=== PATIENT | male | born 1975 | race Caucasian/White ===

== ENCOUNTER 2017-04-07 23:47 | Emergency (ER) | payer SELFPAY ==
[~2017-04-07] VITALS: Ht 182.9 cm; Wt 78.0 kg
[2017-04-08 00:29] VITALS: TEMP 36.7; O2SAT 97; Ht 182.9 cm; Wt 78.0 kg
[2017-04-08 00:34] LABS: BLOOD UREA NITROGEN 7 mg/dl (7-18); BUN/CREATININE RATIO 9.9 (10-20); CALCIUM 8.5 mg/dl (8.5-10.1); CARBON DIOXIDE 28 mmol/L (21-32); CHLORIDE 112 mmol/L (98-107); CREATININE 0.68 mg/dl (0.60-1.40); GLUCOSE 109 mg/dl (70-99); POTASSIUM 3.6 mmol/L (3.5-5.1); SODIUM 147 mmol/L (136-145)
--- NOTE | 2017-04-08 05:19 | EMERGENCY ROOM VISIT NOTE ---
History First contact with patient: 23:45 Chief Complaint: ALCOHOL OVERDOSE Stated Complaint: ALCOHOL OVERDOSE Nursing Triage Summary: Patient arrives to ED via BLS transport after being found drunk and bothering customers in the women's bathroom at the [facility] on [facility] [place]. Patient denies drug use, has not been omiting History of Present Illness The patient is a 41 year old male who presents to the Emergency Room with complaints of alcohol overdose. Patient is found in the [facility] bathroom bothering customers. Police were summoned and they summoned EMS. Patient is a known alcoholic. Patient has no complaints. No one is willing to care for him tonight. Patient denies any drug use. He states he drank a lot of alcohol. Patient denies chest pain, dyspnea, abdominal pain or any other medical complaints. Review of Systems Unable to obtain secondary to altered mental status from alcohol overdose Past Medical/Surgical History Unable to obtain secondary to altered mental status from alcohol overdose Social History Smoking Status: Current Every Day Smoker Alcohol Use: heavy Marital Status: single Occupation Status: employed Current/Historical Medications Unable to Obtain Active Prescriptions or Reported Meds Allergies Coded Allergies: No Known Allergies (Unverified Allergy, NONE, 08/30/09) Physical Exam Vital Signs Date Time Temp Pulse Resp B/P (MAP) Pulse Ox O2 Delivery O2 Flow Rate FiO2 04/08/17 04:30 58 20 102/57 97 04/08/17 03:06 67 04/08/17 02:28 92/57 04/08/17 02:00 64 14 95 04/08/17 01:31 91/47 04/08/17 01:30 68 17 97/42 94 Room Air 04/08/17 01:30 72 18 96 04/08/17 01:01 107/51 04/08/17 01:00 68 18 107/51 94 Room Air 04/08/17 01:00 72 14 94 04/08/17 00:29 36.7 72 17 126/82 94 Room Air 04/08/17 00:29 97 Room Air 04/07/17 23:56 61 Physical Exam PHYSICAL EXAM: VITALS: Vitals are noted on the nurse's note and reviewed by myself. Vital signs stable. GENERAL: White male with EtOH odor, in no acute distress, nondiaphoretic, well- developed well-nourished. The patient is visibly intoxicated. SKIN: The skin was without obvious lacerations, abrasions, or rashes. There is no tenting of the skin. Capillary reflex less than 2 seconds. HEENT: Normocephalic, atraumatic. PERRLA. EOMI. Conjunctiva with mild injection without icterus. Tympanic membranes without erythema or effusion bilaterally no hemotympanum. External auditory canals are clear. Nares patent bilaterally. No epistaxis. Oropharynx without erythema or exudate. Uvula midline. Oral mucosal moist. No lymphadenopathy. Neck is supple without cervical spine tenderness. HEART: Regular rate and rhythm without murmurs gallops or rubs. Peripheral pulses 2+. LUNGS: Clear to auscultation bilaterally without wheezes, rales or rhonchi. ABDOMEN: Positive bowel sounds x 4. Normal tympanic percussion. Soft, nontender, without masses or organomegaly. MUSCULOSKELETAL: Gross motor function of the upper and lower extremities intact. The patient has a staggering gait. NEUROLOGIC: The patient is visibly intoxicated. Once they were more sober they were alert and oriented to person place and time. Medical Decision & Procedures Laboratory Results 04/07/17 23:36 Test 04/07/17 23:36 Anion Gap 7.0 mmol/L (3-11) Estimated GFR () 136.5 Estimated GFR (Non- 117.8 BUN/Creatinine Ratio 9.9 (10-20) Calcium Level 8.5 mg/dl (8.5-10.1) Ethyl Alcohol mg/dL 407.0 mg/dl (0-3) ED Course Prior records/ancillary studies reviewed. Triage Nursing notes reviewed. Additional history obtained from EMS. The patient's history was concerning for altered mental status and a possible alcohol overdose. Differential diagnosis: Etiologies such as alcohol intoxication, toxicologic, infection, hypoglycemia, electrolyte abnormalities, cardiac sources, intracerebral event, neurologic, as well as others were entertained. Physical examination: As above. The patient is clinically intoxicated. no trauma noted. ER treatment provided: Monitoring Aspiration precautions The patient was frequently reassessed. Diagnostic interpretation by me: Cardiac monitoring did not reveal any evidence of dysrhythmia. The labs no worrisome electrolyte abnormality. The patient's blood alcohol level was 400 mg/dL. The patient's history was reviewed once they were more coherent and their intoxication cleared. The patient states they have been in good health recently and had no medical complaints. The patient admitted to consuming alcohol. No additional concerning findings were noted. The patient complained of no symptoms to suggest assault. This appears to be consistent with an overdose of alcohol. Patient states he has no other medical complaints would like to leave. By the evaluation outlined above emergent etiologies such as trauma, infection, hypoglycemia, electrolyte abnormalities, cardiac sources, intracerebral event, neurologic,as well as others were deemed relatively unlikely. The patient was informed about the findings as listed above. The patient was counseled on the dangers of excessive alcohol use. I gave my usual and customary discussion regarding this issue. All questions were answered and the patient was pleased with the treatment. Return instructions were outlined and the patient was discharged in stable condition once their mental status improved and a safe destination was confirmed. Outpatient prescription management: None Referral: The patient was referred back to their primary care physician for follow-up in 2 to 3 days for a recheck of their current condition. Medical Decision As above Impression Primary Impression: Alcohol overdose Additional Impression: Alcohol abuse Departure Information Dispostion Home / Self-Care Condition GOOD Prescriptions Unable to Obtain Active Prescriptions or Reported Meds Referrals No Doctor, Assigned (PCP) Patient Instructions My [facility] Additional Instructions Keep well-hydrated. Tylenol every 6 hours as needed for pain (Maximum 3000 mg Tylenol in 24 hr period). Follow up with family doctor as needed. No driving for the next 24 hours. Recommend no alcohol for the next 48 hours and avoid binge drinking in the future. Return to ER sooner for chest pain, abdominal pain, worsening signs or symptoms or as needed. Problem Qualifiers Primary Impression: Alcohol overdose Encounter type: initial encounter Injury intent: accidental or unintentional Qualified Codes: T51.91XA - Toxic effect of unspecified alcohol , accidental (unintentional), initial encounter
[2017-04-08 05:37] VITALS: BP 142/76; PULSE 78; O2SAT 99
== END 2017-04-08 05:38 | disposition home or self-care (01) ==
LOC: EDUNIT# 23:47 → C.EDC 23:51 → C.EDB 04-08 05:38
DX: T51.91XA Toxic effect of unspecified alcohol, accidental (unintentional), initial encounter (principal); F10.129 Alcohol abuse with intoxication, unspecified; Y90.8 Blood alcohol level of 240 mg/100 ml or more; F17.200 Nicotine dependence, unspecified, uncomplicated

== ENCOUNTER 2017-08-02 12:08 | Emergency (ER) | payer SELFPAY ==
[~2017-08-02] VITALS: Ht 180.3 cm; Wt 69.5 kg
[2017-08-02 12:14] VITALS: TEMP 36.9; Ht 180.3 cm; Wt 69.5 kg
--- NOTE | 2017-08-02 12:47 | EMERGENCY ROOM VISIT NOTE ---
History Report prepared by Saima: Barbara Campos Under the Supervision of: Dr. Jt Qureshi M.D. First contact with patient: 12:26 Chief Complaint: ALCOHOL OVERDOSE Stated Complaint: ALCOHOL History of Present Illness The patient is a 41 year old male who presents to the Emergency Room with complaints of an alcohol overdose occurring shortly prior to arrival. He was stumbling downtown when noted by police and EMS contacted. No friends were around. Patient denies any pain other than chronic back discomfort. No cp, headache, neck pain, fall, injury, nausea, vomiting, nor other symptoms. Admits he drinks too much. Patient claims only 1 beer today, but admits drinking all yesterday. Source of History: patient Onset: shortly prior to arrival Position: other (global) Quality: other (alcohol overdose ) Associated Symptoms: + back pain, No headache, No chest pain Review of Systems See HPI for pertinent positives & negatives. A total of 10 systems reviewed and were otherwise negative. Past Medical & Surgical Unable to obtain medical history sheet secondary to intoxication. Family History Unable to obtain medical history sheet secondary to intoxication. Social History Smoking Status: Current Every Day Smoker Alcohol Use: heavy Marital Status: single Occupation Status: employed Current/Historical Medications No Active Prescriptions or Reported Meds Allergies Coded Allergies: No Known Allergies (Unverified , NONE, 08/02/17) Physical Exam Vital Signs Date Time Temp Pulse Resp B/P (MAP) Pulse Ox O2 Delivery O2 Flow Rate FiO2 08/02/17 13:21 90 16 138/107 98 08/02/17 12:19 93 08/02/17 12:14 36.9 86 16 145/94 96 Room Air Physical Exam GENERAL: Patient is moderately intoxicated. Smells of alcohol. Well appearing and in no acute distress. HEAD: No evidence of Trauma. AT/NC EYES: Injected conjunctiva. Normal EOM. Pupils equal/reactive. ENT: Mucous membranes moist, no nasal congestion, . NECK: No step-offs, no adenopathy, no meningismus, trachea is midline. LUNGS: No dyspnea. Clear to auscultation and equal bilaterally. No wheeze, no rhonchi. HEART: Regular rate and rhythm. No murmurs, rubs, gallops appreciated. ABDOMEN: Soft, nontender, bowel sounds positive, no masses appreciated, no peritonitis. BACK: No midline tenderness, no CVA tenderness EXTREMITIES: Normal motion all extremities, no cyanosis, no edema. NEUROLOGIC: Intoxicated. Alert, oriented with slurred speech. No acute motor or sensory deficits, no focal weakness, cranial nerves grossly intact. SKIN: No rash, no jaundice, no diaphoresis. Medical Decision & Procedures ED Course 1225: The patient was evaluated in room B3B. A complete history and physical exam was performed. 1240: We will be holding off on labs until the patient knows if he has a sober friend. 1255: The patient has sober friends here. We discussed his alcohol problem which they all agree he has. 1300: Reevaluated the patient. Discussed results and discharge instructions: He verbalized understanding and agreement. The patient is ready for discharge. Medical Decision Differential: Alcohol Intoxication, Drug Intoxication, Electrolyte Abnormality, Trauma, Intracranial Event, Toxicological, Excited Delirium, Serotonin Syndrome , amongst other pathologies entertained. 41 yr old intoxicated male brought in by EMS after police found him stumbling downtown. Patient with no evidence nor history for trauma. Patient notes chronic back pain unchanged and no falls. Protecting airway and breathing comfortably throughout ED stay. He is clearly intoxicated but prior to labs being sent his friend arrived and I cancelled labs. Monitored and discharged when awake, alert, oriented and denies any complaints. Friend takes responsibility for patient. Medication Reconcilliation Current Medication List: was personally reviewed by me Blood Pressure Screening Patient's blood pressure: Elevated blood pressure Blood pressure disposition: Elevated BP felt to be situational Impression Primary Impression: Alcohol overdose Additional Impressions: Alcohol abuse Alcohol use with intoxication Scribe Attestation The scribe's documentation has been prepared under my direction and personally reviewed by me in its entirety. I confirm that the note above accurately reflects all work, treatment, procedures, and medical decision making performed by me. Departure Information Dispostion Home / Self-Care Prescriptions No Active Prescriptions or Reported Meds Referrals No Doctor, Assigned (PCP) Forms HOME CARE DOCUMENTATION FORM, IMPORTANT VISIT INFORMATION Patient Instructions My [facility] Additional Instructions You were evaluated in emergency department for intoxication. This is a sign of Alcohol Abuse and should not be taken lightly. You had a blood alcohol level that was significantly elevated. You have been here several times for alcohol related issues. This is a sign of alcoholism. Over the next 24 hours keep well hydrated and eat light meals. Don't drink any more alcohol. This is important. Please discuss this visit with your Primary Care Provider, [facility] and/or your loved ones. If the Police were involved you will likely be cited for public intoxication. Please contact [employer] for further information. Call 911 or return to Emergency Department if you develop: Passing out, difficulty breathing, many episodes of vomiting, blood in vomit or stool, abdominal pain, fevers, or other severe symptoms. We are always here to help if you feel you need further evaluation or treatment. Problem Qualifiers
[2017-08-02 13:21] VITALS: BP 138/107; PULSE 90; O2SAT 98
== END 2017-08-02 13:05 | disposition home or self-care (01) ==
LOC: EDBD 12:08 → C.EDB 12:09
DX: T51.91XA Toxic effect of unspecified alcohol, accidental (unintentional), initial encounter (principal); X58.XXXA Exposure to other specified factors, initial encounter; F10.129 Alcohol abuse with intoxication, unspecified; F17.200 Nicotine dependence, unspecified, uncomplicated; M54.9 Dorsalgia, unspecified; G89.29 Other chronic pain